=== PATIENT | male | born 1940 | race Caucasian/White ===

== ENCOUNTER 2019-02-21 14:24 | Emergency (ER) | payer MEDICARE, BC ==
--- NOTE | 2019-02-21 14:48 | EDM.PDOC ---
ED HPI GENERAL MEDICAL PROBLEM - General Chief Complaint: Neurological Problem Stated Complaint: CONFUSION Time Seen by Provider: 02/21/19 14:40 Source of Information: Reports: Patient, Family - History of Present Illness INITIAL COMMENTS - FREE TEXT/NARRATIVE: 78-year-old white male brought in by his states over the last 24 hours patient has been confused and asking questions that he normally knows the answers to not knowing the time or the date patient has recently had a lumbar spinal fusion Saturday, 16 February in [place] he spent 3 days overnight in the hospital was discharged and has been doing fine until Saturday evening when signs symptoms started patient is currently taking Lortab and Flexeril 1 every 8 hours states that he was fine in the hospital and has been doing well at home he has been up and moving walking with his walker eating and drinking okay passing gas okay and the patient both deny any fever or chills nausea vomiting and increased pain no numbness no tingling loss of bowel or bladder Patient does complain a little bit of a sore throat since the surgery and has no other complaints at this time patient was intubated and did have a Villatoro catheter placed during surgery states he has no complications postoperatively - Related Data Allergies Allergy/AdvReac Type Severity Reaction Status Date / Time etodolac [From Lodine] Allergy Severe Hives Verified 02/21/19 16:11 losartan [From Cozaar] Allergy Severe Wheezing Verified 02/21/19 16:11 venlafaxine [From Effexor] AdvReac Intermediate Fatigue Verified 02/21/19 16:11 atorvastatin [From Lipitor] AdvReac Muscle Verified 02/21/19 16:11 Aches tetanus toxoid, adsorbed AdvReac Swelling Verified 02/21/19 16:11 Home Meds: Home Meds Aspirin [Ecotrin] 81 mg PO DAILY 01/22/17 [History] DULoxetine [Cymbalta] 30 mg PO DAILY 01/22/17 [History] Eszopiclone 1 tab PO BEDTIME PRN 01/22/17 [History] Acetaminophen 325 - 650 mg PO Q4HR PRN 06/27/18 [History] Baclofen 5 mg PO BEDTIME 06/27/18 [History] atorvaSTATin [Lipitor] 10 mg PO BEDTIME 06/27/18 [History] Triamterene/Hydrochlorothiazid [Triamterene-HCTZ 75-50 MG] 1 tab PO DAILY [History] Past Medical History HEENT History: Reports: Impaired Vision, Other (See Below) Other HEENT History: tinnitus Cardiovascular History: Reports: High Cholesterol, Hypertension Respiratory History: Reports: Asthma, Sleep Apnea, Other (See Below) Other Respiratory History: chronic cough Gastrointestinal History: Reports: Colon Polyp, GERD, Hemorrhoids Other Gastrointestinal History: hx colon polyps Genitourinary History: Reports: Other (See Below) Other Genitourinary History: erectile dysfunction Musculoskeletal History: Reports: Osteoarthritis Other Musculoskeletal History: lumbar radiculopathy, stenosis of lateral recess of lumbar spine, s/p diskectomy, rotator cuff tear. spinal stenosis, sciatica Neurological History: Reports: Other (See Below) Other Neuro History: subdural hematoma Psychiatric History: Reports: Anxiety, Depression Other Psychiatric History: insomnia Endocrine/Metabolic History: Reports: Diabetes, Type II Other Endocrine/Metabolic History: fatgiue Hematologic History: Reports: None Immunologic History: Reports: None Oncologic (Cancer) History: Reports: Prostate Other Dermatologic History: rosacea - Past Surgical History GI Surgical History: Reports: Colonoscopy Male Surgical History: Reports: Prostatectomy Neurological Surgical History: Reports: Spinal Fusion Musculoskeletal Surgical History: Reports: Shoulder Replacement Other Musculoskeletal Surgeries/Procedures:: diskectomy Social & Family History - Caffeine Use Caffeine Use: Reports: Coffee ED ROS GENERAL - Review of Systems Review Of Systems: See Below Constitutional: Reports: No Symptoms. Denies: Fever, Chills, Malaise, Weakness , Fatigue, Night Sweats, Diaphoresis, Decreased Appetite HEENT: Reports: No Symptoms, Throat Pain. Denies: Sinus Problem, Throat Swelling Respiratory: Reports: No Symptoms. Denies: Shortness of Breath, Pleuritic Chest Pain Cardiovascular: Reports: No Symptoms. Denies: Chest Pain, Blood Pressure Problem, Claudication, Dyspnea on Exertion, Lightheadedness, Palpitations, Syncope Endocrine: Reports: No Symptoms GI/Abdominal: Reports: No Symptoms. Denies: Abdominal Pain, Decreased Appetite , Difficulty Swallowing, Nausea, Vomiting : Denies: Discharge, Dysuria, Flank Pain, Frequency, Urgency Musculoskeletal: Reports: No Symptoms Skin: Reports: No Symptoms Neurological: Reports: Confusion. Denies: Dizziness, Headache, Numbness, Paresthesia, Pre-Existing Deficit, Seizure, Syncope, Tingling, Tremors, Trouble Speaking, Difficulty Walking, Weakness Psychiatric: Reports: Confusion. Denies: Agitation, Anxiety, Depression, Hallucinations Hematologic/Lymphatic: Reports: No Symptoms Immunologic: Reports: No Symptoms - Physical Exam Exam: See Below Exam Limited By: No Limitations General Appearance: Alert, WD/WN, No Apparent Distress, Other (Patient is alert and oriented patient was off by 1 date and 1 day stated that it was Saturday and 20 February but carried a normal conversation answered all questions appropriately with normal speech and cranial nerves II through XII intact. Equal facial sensation no pronator drift equal [employer] 5/5 Upper extremities full range of motion with lower extremity is that has a normal slow gait with a walker I could find no neurological deficit) Eye Exam: Bilateral Eye: EOMI, PERRL Ears: Normal External Exam, Normal Canal, Hearing Grossly Normal, Normal TMs Nose: Normal Inspection, Normal Mucosa, No Blood Throat/Mouth: Normal Inspection, Normal Lips, Normal Teeth, Normal Gums, Normal Oropharynx, Normal Voice, No Airway Compromise Head Exam: Atraumatic, Normocephalic Neck: Normal Inspection, Supple, Non-Tender, Full Range of Motion. No: Limited Range of Motion, Lymphadenopathy (L) Respiratory/Chest: No Respiratory Distress, Lungs Clear, Normal Breath Sounds, No Accessory Muscle Use, Chest Non-Tender Cardiovascular: Normal Peripheral Pulses, Regular Rate, Rhythm, No Edema GI/Abdominal: Normal Bowel Sounds, Soft, Non-Tender, No Organomegaly, No Distention Neuro Exam (Abbreviated): Alert, Oriented, CN II-XII Intact, Normal Cognition, Normal Gait, No Motor/Sensory Deficits. No: Confused, Disoriented, Slow to Respond, Unresponsive, Memory Loss Recent Events, Abnormal Gait Back Exam: Other (Examination of the back revealed no signs or symptoms of infection around the incision it was dry and clean and intact there is no erythema or calor no discharge is a well-healing incision) Extremities: Normal Inspection, Normal Range of Motion, Non-Tender, No Pedal Edema Psychiatric: Normal Affect Skin Exam: Warm, Dry, Intact, Normal Color, No Rash Course - Vital Signs Text/Narrative:: The also states that he takes Lunesta daily at bedtime and has been for years but he has been taking it recently with the Flexeril and Lortab at night patient's labs urine were within normal limits no signs of any infection spoke with the patient and the in regards to labs and medications they agree that they will try to not take any Flexeril for the next 24 hours and see how patient does be pain gets worse they will follow up here in the ER with primary care provider or with the surgeon in [place] - Orders/Labs/Meds Labs: Laboratory Tests 02/21/19 02/21/19 02/21/19 Range/Units 15:20 15:20 15:36 WBC 6.9 (4.0-10.0) x10^3/uL RBC 4.48 L (4.5-6.0) x10^6/uL Hgb 12.9 L D (14.0-18.0) g/dL Hct 38.9 L (40.0-52.0) % MCV 86.8 (78.0-93.0) fL MCH 28.8 (26.0-32.0) pg MCHC 33.2 (32.0-36.0) g/dL RDW Coeff of [place] 13.3 (10.0-15.0) % Plt Count 223 (130-400) x10^3/uL Neut % (Auto) 67.0 (50.0-80.0) % Lymph % (Auto) 18.0 L (25.0-50.0) % [place] % (Auto) 11.5 H (2.0-11.0) % Eos % (Auto) 3.2 (0.0-4.0) % Baso % (Auto) 0.3 (0.2-1.2) % Sodium 136 (136-145) mmol/L Potassium 4.0 (3.5-5.1) mmol/L Chloride 97 L (98-107) mmol/L Carbon Dioxide 29 (21-32) mmol/L Anion Gap 14.0 (10-20) mmol/L BUN 23 H (7-18) mg/dL Creatinine 1.2 (0.70-1.30) mg/dL Est Cr Clr Drug Dosing TNP Estimated GFR (MDRD) 59 Glucose 112 H (74-106) mg/dL Calcium 9.2 (8.5-10.1) mg/dL Urine Color Light yellow (YELLOW) Urine Appearance Clear (CLEAR) Urine pH 7.0 (5.0-8.0) Ur Specific [place] 1.015 Urine Protein Negative (NEGATIVE) mg/dL Urine Glucose (UA) Negative (NEGATIVE) mg/dL Urine Ketones Negative (NEGATIVE) mg/dL Urine Occult Blood Negative (NEGATIVE) Urine Nitrite Negative (NEGATIVE) Urine Bilirubin Negative (NEGATIVE) Urine Urobilinogen 1.0 (0.2) EU/dL Ur Leukocyte Esterase Negative (NEGATIVE) Departure - Departure Time of Disposition: 16:10 Disposition: Home, Self-Care 01 Condition: Good Clinical Impression: Confusion caused by a drug - Discharge Information Referrals: Margie Drake DO [Primary Care Provider] - Forms: ED Department Discharge - Problem List & Annotations (1) Confusion caused by a drug SNOMED Code(s): 147643089 Code(s): F19.921 - OTH PSYCHOACTIVE SUBSTANCE USE, UNSP W INTOX W DELIRIUM Status: Acute Current Visit: Yes
[2019-02-21 15:46] LABS: CHLORIDE,CL 97 mmol/L (98-107); SODIUM,NA 136 mmol/L (136-145)
[2019-02-21 17:03] VITALS: BP 129/89; PULSE 83
== END 2019-02-21 16:34 | disposition home or self-care (01) ==
LOC: VM.ED 14:24
DX: R41.0 Disorientation, unspecified (principal); T48.1X5A Adverse effect of skeletal muscle relaxants [neuromuscular blocking agents], initial encounter; I10 Essential (primary) hypertension; E78.00 Pure hypercholesterolemia, unspecified; K21.9 Gastro-esophageal reflux disease without esophagitis; E11.9 Type 2 diabetes mellitus without complications; Z79.82 Long term (current) use of aspirin; Z79.899 Other long term (current) drug therapy; Z88.8 Allergy status to other drugs, medicaments and biological substances
CPT/HCPCS: 36415; 80048; 81003; 85025; 99284; 99284-GF

== ENCOUNTER 2020-07-11 16:04 | Emergency (ER) | payer MEDICARE, BC ==
--- NOTE | 2020-07-11 16:36 | EDM.PDOC ---
ED HPI GENERAL MEDICAL PROBLEM - General Stated Complaint: post surgical Time Seen by Provider: 07/11/20 16:25 Source of Information: Reports: Patient, RN, RN Notes Reviewed History Limitations: Reports: No Limitations - History of Present Illness INITIAL COMMENTS - FREE TEXT/NARRATIVE: Pt presents to ER with c/o redness, swelling, and pain to Gallbladder drainage tube in the right side of the abdomen. Patient states on May 11, 2020, he had a "twisted bowel". He was taken to surgery and ended up with a colostomy. On June 24, 2020, patient had surgery for gallbladder, leaving him with a pop inage tube. Patient states the drainage for the tube has been under 40mL for the day since 07/06/2020. Patient states right after Thanksgiving he began feeling more weak and run down, states he has felt somewhat SOB from time to time. Patient denies cough, Chest pain, N/V/D, chills. States he thought he may have had a fever from time to time. Patient denies any COVID concerns. States he and his stay home for the most part. Patient states he talked to the nurse for the Doctor taking care of his Gallbladder and she states he should come to the ER and have the drain taken out if it appears to be infected. Onset: Gradual - Related Data Allergies Allergy/AdvReac Type Severity Reaction Status Date / Time etodolac [From Lodine] Allergy Severe Hives Verified 06/30/19 10:37 losartan [From Cozaar] Allergy Severe Wheezing Verified 06/30/19 10:37 venlafaxine [From Effexor] AdvReac Intermediate Fatigue Verified 06/30/19 10:37 atorvastatin [From Lipitor] AdvReac Muscle Verified 06/30/19 10:37 Aches tetanus toxoid, adsorbed AdvReac Swelling Verified 06/30/19 10:37 Home Meds: Home Meds Aspirin [Ecotrin] 81 mg PO DAILY 01/22/17 [History] DULoxetine [Cymbalta] 30 mg PO DAILY 01/22/17 [History] Eszopiclone 1 - 1.5 tab PO ASDIRECTED PRN 01/22/17 [History] Acetaminophen 325 - 650 mg PO Q4HR PRN 06/27/18 [History] atorvaSTATin [Lipitor] 10 mg PO BEDTIME 06/27/18 [History] Albuterol Sulfate [Proair Hfa] 1 puff IH Q4HR PRN 02/21/19 [History] Triamterene/Hydrochlorothiazid [Triamterene-HCTZ 37.5-25 MG] 1 tab PO DAILY 02/21/19 [History] Metoprolol Succinate [Toprol XL] 25 mg PO DAILY #30 tab.er 06/30/19 [Rx] Nitroglycerin [Nitrostat] 0.4 mg SL ASDIRECTED #1 bottle 06/30/19 [Rx] Past Medical History HEENT History: Reports: Impaired Vision, Other (See Below) Other HEENT History: tinnitus Cardiovascular History: Reports: High Cholesterol, Hypertension Respiratory History: Reports: Asthma, Sleep Apnea, Other (See Below) Other Respiratory History: chronic cough Gastrointestinal History: Reports: Colon Polyp, GERD, Hemorrhoids Other Gastrointestinal History: hx colon polyps Genitourinary History: Reports: Other (See Below) Other Genitourinary History: erectile dysfunction Musculoskeletal History: Reports: Osteoarthritis Other Musculoskeletal History: lumbar radiculopathy, stenosis of lateral recess of lumbar spine, s/p diskectomy, rotator cuff tear. spinal stenosis, sciatica Neurological History: Reports: Other (See Below) Other Neuro History: subdural hematoma Psychiatric History: Reports: Anxiety, Depression Other Psychiatric History: insomnia Endocrine/Metabolic History: Reports: Diabetes, Type II Other Endocrine/Metabolic History: fatgiue Hematologic History: Reports: None Immunologic History: Reports: None Oncologic (Cancer) History: Reports: Prostate Other Dermatologic History: rosacea - Past Surgical History GI Surgical History: Reports: Colonoscopy Male Surgical History: Reports: Prostatectomy Neurological Surgical History: Reports: Spinal Fusion Musculoskeletal Surgical History: Reports: Shoulder Replacement Other Musculoskeletal Surgeries/Procedures:: diskectomy Social & Family History - Family History Other HEENT Family History: Both parents, 2 siblings Cardiac: Reports: [place] - Caffeine Use Caffeine Use: Reports: Coffee ED ROS GENERAL - Review of Systems Review Of Systems: Comprehensive ROS is negative, except as noted in HPI. ED EXAM, GI/ABD - Physical Exam Exam: See Below Exam Limited By: No Limitations General Appearance: Alert, WD/WN, No Apparent Distress Eyes: Bilateral: Normal Appearance, EOMI Ears: Normal External Exam, Hearing Grossly Normal Nose: Normal Inspection Throat/Mouth: Normal Inspection, Normal Voice, No Airway Compromise Head: Atraumatic, Normocephalic Neck: Normal Inspection, Supple, Non-Tender, Full Range of Motion Respiratory/Chest: No Respiratory Distress, Lungs Clear, No Accessory Muscle Use, Chest Non-Tender, Decreased Breath Sounds Cardiovascular: Normal Peripheral Pulses, Regular Rate, Rhythm, No Edema, No Gallop, No JVD, No Murmur, No Rub GI/Abdominal Exam: Tender, Other (Biliary ABDON drain, colostomy) (Male) Exam: Deferred Rectal (Males) Exam: Deferred Back Exam: Normal Inspection, Full Range of Motion, NT Extremities: Normal Inspection, Normal Range of Motion, Non-Tender, Normal Capillary Refill, No Pedal Edema Neurological: Alert, Oriented, CN II-XII Intact, Normal Cognition, Normal Gait, Normal Reflexes, No Motor/Sensory Deficits, Other (Uses a walker) Psychiatric: Normal Affect, Normal Mood Skin Exam: Warm, Dry, No Rash, Erythema (small amount around the tube site), Other (no drainage from around the tube) Lymphatic: No Adenopathy Course - Orders/Labs/Meds Orders: Active Orders 24 hr Category Date Time Status CULTURE BLOOD [BC] Stat Lab 07/11/20 16:42 Received CULTURE BLOOD [BC] Stat Lab 07/11/20 16:48 Received URINALYSIS W/MICROSCOPIC [UA W/MICROSCOPIC] [URIN] Stat Lab 07/11/20 16:33 Ordered Blood Culture x2 Reflex Set [OM.PC] Stat Oth 07/11/20 16:33 Ordered Labs: Laboratory Tests 07/11/20 07/11/20 07/11/20 Range/Units 16:42 16:42 16:42 WBC 12.7 H (4.0-10.0) x10^3/uL RBC 4.79 (4.5-6.0) x10^6/uL Hgb 13.7 L D (14.0-18.0) g/dL Hct 40.8 (40.0-52.0) % MCV 85.2 (78.0-93.0) fL MCH 28.6 (26.0-32.0) pg MCHC 33.6 (32.0-36.0) g/dL RDW Coeff of [place] 13.7 (10.0-15.0) % Plt Count 318 D (130-400) x10^3/uL Neut % (Auto) 74.7 (50.0-80.0) % Lymph % (Auto) 13.4 L (25.0-50.0) % [place] % (Auto) 11.1 H (2.0-11.0) % Eos % (Auto) 0.6 (0.0-4.0) % Baso % (Auto) 0.2 (0.2-1.2) % Sodium 134 L (136-145) mmol/L Potassium 3.9 (3.5-5.1) mmol/L Chloride 96 L (98-107) mmol/L Carbon Dioxide 27 (21-32) mmol/L Anion Gap 14.9 (10-20) mmol/L BUN 31 H (7-18) mg/dL Creatinine 1.1 (0.70-1.30) mg/dL Est Cr Clr Drug Dosing TNP Estimated GFR (MDRD) > 60 Glucose 127 H (74-106) mg/dL Lactic Acid 1.6 (0.4-2.0) mmol/L Calcium 9.1 (8.5-10.1) mg/dL Corrected Calcium 9.90 (8.5-10.1) mg/dL Total Bilirubin 0.7 (0.2-1.0) mg/dL AST 16 (15-37) U/L ALT 27 (16-63) U/L Alkaline Phosphatase 111 (46-116) U/L Total Protein 7.4 (6.4-8.2) g/dL Albumin 3.0 L (3.4-5.0) g/dL Globulin 4.4 Albumin/Globulin Ratio 0.68 Meds: Medications Discontinued Medications Generic Name Dose Route Start Last Admin Trade Name Freq PRN Reason Stop Dose Admin Cephalexin 500 mg 07/11/20 17:30 07/11/20 17:42 Keflex PO 07/11/20 17:31 500 mg ONETIME ONE Administration - Re-Assessments/Exams Free Text/Narrative Re-Assessment/Exam: 07/11/20 18:24 Discussed patient case with Dr. Arana who states he would like the tube to be left in place until the patient is seen in the clinic on Saturday. Patient very concerned about infection. Discussed WBC slightly elevated, weakness and feeling of being tired, low grade temp. Decided to start the patient on Cephalexin. Patient states he will return to the ER if any symptoms worsen. Departure - Departure Time of Disposition: 17:25 Disposition: Home, Self-Care 01 Condition: Fair Clinical Impression: Skin infection Biliary drain displacement Qualifiers: Encounter type: initial encounter Qualified Code(s): T85.520A - Displacement of bile duct prosthesis, initial encounter - Discharge Information *PRESCRIPTION DRUG MONITORING PROGRAM REVIEWED*: No *COPY OF PRESCRIPTION DRUG MONITORING REPORT IN PATIENT MIRELA: No Instructions: Cellulitis, Adult, [id number], Probiotics Referrals: Margie Drake DO [Primary Care Provider] - Additional Instructions: RX: Cephalexin Follow up with your surgery appointment on Saturday Return to the ER with any worsening of symptoms - My Orders Last 24 Hours: My Active Orders 07/11/20 16:33 URINALYSIS W/MICROSCOPIC [UA W/MICROSCOPIC] [URIN] Stat Blood Culture x2 Reflex Set [OM.PC] Stat 07/11/20 16:42 CULTURE BLOOD [BC] Stat 07/11/20 16:48 CULTURE BLOOD [BC] Stat - Assessment/Plan Last 24 Hours: My Active Orders 07/11/20 16:33 URINALYSIS W/MICROSCOPIC [UA W/MICROSCOPIC] [URIN] Stat Blood Culture x2 Reflex Set [OM.PC] Stat 07/11/20 16:42 CULTURE BLOOD [BC] Stat 07/11/20 16:48 CULTURE BLOOD [BC] Stat
[2020-07-11 17:17] LABS: ANION GAP 14.9 mmol/L (10-20); CHLORIDE,CL 96 mmol/L (98-107); SODIUM,NA 134 mmol/L (136-145)
[2020-07-11] MEDS ORDERED: Cephalexin 500 MG Cap PO ONE (17:30)
[2020-07-11 20:12] VITALS: BP 114/82; PULSE 88
== END 2020-07-11 17:45 | disposition home or self-care (01) ==
LOC: VM.ED 16:04
DX: T85.520A Displacement of bile duct prosthesis, initial encounter (principal); L08.9 Local infection of the skin and subcutaneous tissue, unspecified; I10 Essential (primary) hypertension; E78.00 Pure hypercholesterolemia, unspecified; J45.909 Unspecified asthma, uncomplicated; F41.9 Anxiety disorder, unspecified; F32.9 Major depressive disorder, single episode, unspecified; E11.9 Type 2 diabetes mellitus without complications; Z90.49 Acquired absence of other specified parts of digestive tract; Z88.7 Allergy status to serum and vaccine; Z88.8 Allergy status to other drugs, medicaments and biological substances; Z79.82 Long term (current) use of aspirin; Z79.899 Other long term (current) drug therapy
CPT/HCPCS: 36415; 80053; 83605; 85025; 87040; 99284; A9270-GY

== ENCOUNTER 2020-07-29 09:25 | Emergency (ER) | payer MEDICARE, BC ==
--- NOTE | 2020-07-29 09:56 | EDM.PDOC ---
ED HPI GENERAL MEDICAL PROBLEM - General Chief Complaint: Abdominal Pain Stated Complaint: Right Rib Area Pain Time Seen by Provider: 07/29/20 09:53 Source of Information: Reports: Patient, RN, RN Notes Reviewed History Limitations: Reports: No Limitations - History of Present Illness INITIAL COMMENTS - FREE TEXT/NARRATIVE: Pt is a 79 year old male who presents to ER with c/o sharp/stabbing pain to the RUQ. Patient has a significant recent surgical history over the past few months. On May 11, the patient had a twisted colon, had surgery and ended up with a colostomy. Approximately 5 weeks ago he had his gallbladder out, a biliary drain was placed at that time. On Saturday AM the drain was taken out and a stent was placed in the bile duct. Since then he has had sharp/stabbing pain, describes them as "quick jabs" that last briefly. He states there is no change with the pain with movement. He states the pain began immediately after the stent placement, or discharge from the outpatient procedure. He states the pains are getting worse, rates them 10/10 when they occur. He states at night he "gets by" because he takes oxycodone. He states the pains are getting more frequent. Denies fever, chills, chest pain, SOB, N/V/D. He states he called [facility] where all procedures were performed and he was instructed to go to his local ER. Onset: Gradual Above the drain site / right abdomen Pain Score (Numeric/FACES): 10 - Related Data Allergies Allergy/AdvReac Type Severity Reaction Status Date / Time etodolac [From Lodine] Allergy Severe Hives Verified 07/29/20 09:38 losartan [From Cozaar] Allergy Severe Wheezing Verified 07/29/20 09:38 venlafaxine [From Effexor] AdvReac Intermediate Fatigue Verified 07/29/20 09:38 atorvastatin [From Lipitor] AdvReac Muscle Verified 07/29/20 09:38 Aches tetanus toxoid, adsorbed AdvReac Swelling Verified 07/29/20 09:38 Home Meds: Home Meds DULoxetine [Cymbalta] 30 mg PO DAILY 01/22/17 [History] Eszopiclone 1 - 2 tab PO ASDIRECTED PRN 01/22/17 [History] Acetaminophen 325 - 650 mg PO Q4HR PRN 06/27/18 [History] atorvaSTATin [Lipitor] 10 mg PO BEDTIME 06/27/18 [History] Albuterol Sulfate [Proair Hfa] 1 puff IH Q4HR PRN 02/21/19 [History] Nitroglycerin [Nitrostat] 0.4 mg SL ASDIRECTED #1 bottle 06/30/19 [Rx] Apixaban [Eliquis] 1 tab PO BID 07/29/20 [History] Mirtazapine 15 mg PO BEDTIME 07/29/20 [History] Past Medical History HEENT History: Reports: Impaired Vision, Other (See Below) Other HEENT History: tinnitus Cardiovascular History: Reports: High Cholesterol, Hypertension Respiratory History: Reports: Asthma, Sleep Apnea, Other (See Below) Other Respiratory History: chronic cough Gastrointestinal History: Reports: Colon Polyp, GERD, Hemorrhoids Other Gastrointestinal History: hx colon polyps Genitourinary History: Reports: Other (See Below) Other Genitourinary History: erectile dysfunction Musculoskeletal History: Reports: Osteoarthritis Other Musculoskeletal History: lumbar radiculopathy, stenosis of lateral recess of lumbar spine, s/p diskectomy, rotator cuff tear. spinal stenosis, sciatica Neurological History: Reports: Other (See Below) Other Neuro History: subdural hematoma Psychiatric History: Reports: Anxiety, Depression Other Psychiatric History: insomnia Endocrine/Metabolic History: Reports: Diabetes, Type II Other Endocrine/Metabolic History: fatgiue Hematologic History: Reports: None Immunologic History: Reports: None Oncologic (Cancer) History: Reports: Prostate Other Dermatologic History: rosacea - Past Surgical History GI Surgical History: Reports: Colonoscopy Male Surgical History: Reports: Prostatectomy Neurological Surgical History: Reports: Spinal Fusion Musculoskeletal Surgical History: Reports: Shoulder Replacement Other Musculoskeletal Surgeries/Procedures:: diskectomy Social & Family History - Family History Other HEENT Family History: Both parents, 2 siblings Cardiac: Reports: CA - Caffeine Use Caffeine Use: Reports: Coffee ED ROS GENERAL - Review of Systems Review Of Systems: Comprehensive ROS is negative, except as noted in HPI. ED EXAM, GI/ABD - Physical Exam Exam: See Below Exam Limited By: No Limitations General Appearance: Alert, WD/WN, No Apparent Distress Eyes: Bilateral: Normal Appearance, EOMI Ears: Normal External Exam, Hearing Grossly Normal Nose: Normal Inspection Throat/Mouth: Normal Inspection, Normal Voice, No Airway Compromise Head: Atraumatic, Normocephalic Neck: Normal Inspection, Supple, Non-Tender, Full Range of Motion Respiratory/Chest: No Respiratory Distress, Normal Breath Sounds, No Accessory Muscle Use, Chest Non-Tender, Crackles (bases bilaterally) Cardiovascular: Normal Peripheral Pulses, Regular Rate, Rhythm, No Edema, No Gallop, No JVD, No Murmur, No Rub GI/Abdominal Exam: Normal Bowel Sounds, Soft, Tender (RUQ, RLQ) (Male) Exam: Deferred Rectal (Males) Exam: Deferred Back Exam: Normal Inspection, Full Range of Motion, NT Extremities: Normal Inspection, Normal Range of Motion, Non-Tender, Normal Capillary Refill, No Pedal Edema Neurological: Alert, Oriented, CN II-XII Intact, Normal Cognition, Normal Gait, Normal Reflexes, No Motor/Sensory Deficits Psychiatric: Normal Affect, Normal Mood Lymphatic: No Adenopathy Course - Vital Signs Last Recorded V/S: Last Vital Signs Temp 97.6 F 07/29/20 10:09 Pulse 76 07/29/20 10:09 Resp 14 07/29/20 10:09 BP 132/78 07/29/20 10:09 Pulse Ox - Orders/Labs/Meds Labs: Laboratory Tests 07/29/20 07/29/20 07/29/20 Range/Units 09:48 09:48 09:48 WBC 4.6 (4.0-10.0) x10^3/uL RBC 4.12 L (4.5-6.0) x10^6/uL Hgb 11.7 L D (14.0-18.0) g/dL Hct 36.9 L (40.0-52.0) % MCV 89.6 D (78.0-93.0) fL MCH 28.4 (26.0-32.0) pg MCHC 31.7 L (32.0-36.0) g/dL RDW Coeff of Audelia 14.9 (10.0-15.0) % Plt Count 229 D (130-400) x10^3/uL Neut % (Auto) 64.0 (50.0-80.0) % Lymph % (Auto) 22.1 L (25.0-50.0) % Traverse % (Auto) 9.5 (2.0-11.0) % Eos % (Auto) 3.7 (0.0-4.0) % Baso % (Auto) 0.7 (0.2-1.2) % Sodium 142 (136-145) mmol/L Potassium 3.9 (3.5-5.1) mmol/L Chloride 106 (98-107) mmol/L Carbon Dioxide 29 (21-32) mmol/L Anion Gap 10.9 (10-20) mmol/L BUN 17 (7-18) mg/dL Creatinine 1.0 (0.70-1.30) mg/dL Est Cr Clr Drug Dosing TNP Estimated GFR (MDRD) > 60 Glucose 115 H (74-106) mg/dL Calcium 8.5 (8.5-10.1) mg/dL Corrected Calcium 9.46 (8.5-10.1) mg/dL Total Bilirubin 0.4 (0.2-1.0) mg/dL AST 20 (15-37) U/L ALT 28 (16-63) U/L Alkaline Phosphatase 73 (46-116) U/L C-Reactive Protein 2.6 H (<=0.9) mg/dL Total Protein 6.5 (6.4-8.2) g/dL Albumin 2.8 L (3.4-5.0) g/dL Globulin 3.7 Albumin/Globulin Ratio 0.76 Amylase 58 (25-115) U/L Lipase 143 (73-393) U/L Urine Color (YELLOW) Urine Appearance (CLEAR) Urine pH (5.0-8.0) Ur Specific [place] Urine Protein (NEGATIVE) mg/dL Urine Glucose (UA) (NEGATIVE) mg/dL Urine Ketones (NEGATIVE) mg/dL Urine Occult Blood (NEGATIVE) Urine Nitrite (NEGATIVE) Urine Bilirubin (NEGATIVE) Urine Urobilinogen (0.2) EU/dL Ur Leukocyte Esterase (NEGATIVE) 07/29/ Range/Units 10:28 WBC (4.0-10.0) x10^3/uL RBC (4.5-6.0) x10^6/uL Hgb (14.0-18.0) g/dL Hct (40.0-52.0) % MCV (78.0-93.0) fL MCH (26.0-32.0) pg MCHC (32.0-36.0) g/dL RDW Coeff of Audelia (10.0-15.0) % Plt Count (130-400) x10^3/uL Neut % (Auto) (50.0-80.0) % Lymph % (Auto) (25.0-50.0) % Traverse % (Auto) (2.0-11.0) % Eos % (Auto) (0.0-4.0) % Baso % (Auto) (0.2-1.2) % Sodium (136-145) mmol/L Potassium (3.5-5.1) mmol/L Chloride (98-107) mmol/L Carbon Dioxide (21-32) mmol/L Anion Gap (10-20) mmol/L BUN (7-18) mg/dL Creatinine (0.70-1.30) mg/dL Est Cr Clr Drug Dosing Estimated GFR (MDRD) Glucose (74-106) mg/dL Calcium (8.5-10.1) mg/dL Corrected Calcium (8.5-10.1) mg/dL Total Bilirubin (0.2-1.0) mg/dL AST (15-37) U/L ALT (16-63) U/L Alkaline Phosphatase (46-116) U/L C-Reactive Protein (<=0.9) mg/dL Total Protein (6.4-8.2) g/dL Albumin (3.4-5.0) g/dL Globulin Albumin/Globulin Ratio Amylase (25-115) U/L Lipase (73-393) U/L Urine Color Yellow (YELLOW) Urine Appearance Clear (CLEAR) Urine pH 6.5 (5.0-8.0) Ur Specific [place] 1.020 Urine Protein Negative (NEGATIVE) mg/dL Urine Glucose (UA) Negative (NEGATIVE) mg/dL Urine Ketones Negative (NEGATIVE) mg/dL Urine Occult Blood Negative (NEGATIVE) Urine Nitrite Negative (NEGATIVE) Urine Bilirubin Negative (NEGATIVE) Urine Urobilinogen 0.2 (0.2) EU/dL Ur Leukocyte Esterase Negative (NEGATIVE) Meds: Medications Discontinued Medications Generic Name Dose Route Start Last Admin Trade Name Freq PRN Reason Stop Dose Admin Iopamidol 100 ml 07/29/20 10:44 07/29/20 11:03 Isovue-300 (61%) IVPUSH 07/29/20 10:45 100 ml ONETIME ONE Administration - Radiology Interpretation Free Text/Narrative:: CT abdomen pelvis with contrast: Trace right pleural effusion with associated compressive atelectasis. There is a common bile duct stent in place. This is within the duodenum. The proximal aspect is within the distal aspect of the common bile duct. The stent appears patent. No intrahepatic biliary ductal dilation. Mild pneumo Krissy. No suspicious hepatic lesions are identified. The spleen is prominent in size, measuring 13 cm. Fatty atrophy of the pancreas. The gallbladder is absent. The adrenal glands and kidneys are unremarkable. No hydronephrosis or hydroureter. No radiodense renal calculi are identified. Bilateral peripelvic cysts. Left lower quadrant ostomy. No evidence of obstruction. No pneumatosis. No pneumoperitoneum. No drainable fluid collection identified. No significant free fluid within the abdomen or pelvis. No significant adenopathy. Scattered changes of spondylosis the spine. No fracture or osseous lesion. Postsurgical changes of the lower lumbar spine. Impression: Patent common bile duct stent. No evidence of obstruction. - Re-Assessments/Exams Free Text/Narrative Re-Assessment/Exam: 07/29/20 12:43 Discussed patient case with Dr. Lane GI at [facility]. He states as long as CT shows the stent is in correct placement and labs are ok, the patient can follow up out patient. Patient encouraged to call Dr. Childs office. Departure - Departure Time of Disposition: 12:29 Disposition: Home, Self-Care 01 Condition: Good Clinical Impression: RUQ pain - Discharge Information *PRESCRIPTION DRUG MONITORING PROGRAM REVIEWED*: No *COPY OF PRESCRIPTION DRUG MONITORING REPORT IN PATIENT MIRELA: No Instructions: Abdominal Pain, Adult, Ecmh-se-Colt, Flank Pain, Adult, [id number] Referrals: Margie Drake DO [Primary Care Provider] - Forms: ED Department Discharge Additional Instructions: Follow up with your primary care provider if no improvement RX: Oxycodone May use Tylenol and/or Ibuprofen as directed for pain Sepsis Event Note (ED) - Focused Exam Vital Signs: Vital Signs Temp Pulse Resp BP 07/29/20 10:09 97.6 F 76 14 132/78
[2020-07-29 10:15] LABS: CHLORIDE,CL 106 mmol/L (98-107); SODIUM,NA 142 mmol/L (136-145)
[2020-07-29 10:22] VITALS: BP 132/78; PULSE 76
[2020-07-29 10:22] LABS: ANION GAP 10.9 mmol/L (10-20)
[2020-07-29] MEDS: Iopamidol 612 MG/ML 100 ML Bottle IVPUSH ONE (11:03)
--- NOTE | 2020-07-29 11:41 | CT ---
[id number] CT/CT Abdomen Pelvis W IV EXAM: CT Abdomen Pelvis W IV CLINICAL DATA: RIGHT UPPER QUADRANT PAIN SINCE STENT PLACEMENT SATURDAY. COMPARISON STUDY: 05/11/2020. FINDINGS: Trace right pleural effusion with associated compressive atelectasis. There is a common bile duct stent in place. This is within the duodenum. The proximal aspect is within the distal aspect of the common bile duct. The stent appears patent. No intrahepatic biliary ductal dilatation. Mild pneumobilia. No suspicious hepatic lesions are identified. The spleen is prominent in size measuring 13 cm. Fatty atrophy of the pancreas. The gallbladder is absent. The adrenal glands and kidneys are unremarkable. No hydronephrosis or hydroureter. No radiodense renal calculi are identified. Bilateral peripelvic cysts. Left lower quadrant ostomy. No evidence of obstruction. No pneumatosis. No pneumoperitoneum. No drainable fluid collection identified. No significant free fluid within the abdomen or pelvis. No significant adenopathy. Scattered changes of spondylosis the spine. No fracture or osseous lesion. Postsurgical changes of the lower lumbar spine. IMPRESSION: Patent common bile duct stent. No evidence of obstruction. Jose Eduardo Weathers DO 07/29/20 [id number] Thank you for allowing us to participate in the care of your patient.
== END 2020-07-29 12:55 | disposition home or self-care (01) ==
LOC: SUPCPDRO 09:25 → VM.ED 09:25
DX: R10.11 Right upper quadrant pain (principal); E78.00 Pure hypercholesterolemia, unspecified; I10 Essential (primary) hypertension; J45.909 Unspecified asthma, uncomplicated; E11.9 Type 2 diabetes mellitus without complications; F41.9 Anxiety disorder, unspecified; F32.9 Major depressive disorder, single episode, unspecified; Z88.8 Allergy status to other drugs, medicaments and biological substances; Z88.7 Allergy status to serum and vaccine; Z79.01 Long term (current) use of anticoagulants; Z79.899 Other long term (current) drug therapy
CPT/HCPCS: 74177; 80053; 81003; 82150; 83690; 85025; 86140; 99284; 99284-25; Q9967

== ENCOUNTER 2024-09-20 07:18 | Emergency (ER) | payer MEDICARE, BC ==
[2024-09-20 08:00] LABS: APPEARANCE,URINE CLOUDY (CLEAR); BILIRUBIN,URINE SMALL (NEGATIVE); COLOR,URINE YELLOW (YELLOW); GLUCOSE,URINE NEGATIVE (NEGATIVE); KETONES,URINE NEGATIVE (NEGATIVE); LEUKOCYTE ESTERASE,URINE MODERATE (NEGATIVE); NITRITE,URINE NEGATIVE (NEGATIVE); OCCULT BLOOD,URINE LARGE (NEGATIVE); PH,URINE 5.5 (5.0-8.0); PROTEIN,URINE >=300 mg/dL (NEGATIVE); UROBILINOGEN,URINE 0.2 EU/dL (0.2)
[2024-09-20 08:05] VITALS: BP 123/86; PULSE 67
[2024-09-20 08:13] LABS: BACTERIA,URINE FEW /HPF (NOT SEEN); HYALINE CASTS,URINE OCCASIONAL; MUCUS,URINE OCCASIONAL /LPF (NOT SEEN); RBC,URINE 30-40 /HPF (NOT SEEN); WBC,URINE SEMI-PACKED /HPF (NOT SEEN)
[2024-09-20] MEDS: Cephalexin 500 MG Cap PO SCH (08:40)
[2024-09-20] MEDS: Take Home: Cephalexin 500 MG Cap, 6 Cap Pack PO ONE (08:42)
== END 2024-09-20 08:49 | disposition home or self-care (01) ==
LOC: VM.ED 07:18
DX: N39.0 Urinary tract infection, site not specified (principal); I10 Essential (primary) hypertension; E78.00 Pure hypercholesterolemia, unspecified; J45.909 Unspecified asthma, uncomplicated; E11.9 Type 2 diabetes mellitus without complications; Z88.8 Allergy status to other drugs, medicaments and biological substances; Z88.7 Allergy status to serum and vaccine; Z79.899 Other long term (current) drug therapy
CPT/HCPCS: 81001; 87086; 87088; 87186; 99284; A9270-GY; C1758